=== PATIENT | female | born 1940 | race Caucasian/White ===

== ENCOUNTER 2017-07-27 08:33 | Emergency (ER) | payer OTHER ==
[~2017-07-27] VITALS: Ht 162.6 cm; Wt 74.0 kg
[~2017-07-27 08:33] MED LIST: ANTIVERT25 MG PO; BENADRYL25 MG PO; BENICAR HCT 401 EAC1; BENICAR HCT 401 EAC1 PO; CYANOCOBALAM1000 MCG PO; ESTER-C 1,0001 EACH PO; ESTER-C500 M2 PO; IRON55 MG PO; LUTEIN10 MG PO; LUTEIN6 MG PO; METAMUCIL0.52 GM PO; METAMUCIL197.2 GM PO; MIRALAX17 GM PO; MIRALAX255 GM PO; OMEGA-31000 M1 PO; PROTONIX40 MG PO; TYLENOL REGULA325 MG PO; VITAMIN B12 100MCG PO; VITAMIN D1000 UNIT PO; VITAMIN D2000 INTUN PO; VIVELLE-DOT,0.025 MG; VIVELLE-DOT,0.025 MG TD; [UNRECOGNIZED DRUG - OTHER]; [UNRECOGNIZED DRUG - OTHER] PO
[2017-07-27 12:00] VITALS: BP 136/67
== END 2017-07-27 12:02 | disposition home or self-care (01) ==
LOC: EME 08:33
DX: M79.672 Pain in left foot (principal); E78.5 Hyperlipidemia, unspecified; I10 Essential (primary) hypertension; Z88.5 Allergy status to narcotic agent; Z88.0 Allergy status to penicillin; Z88.1 Allergy status to other antibiotic agents
CPT/HCPCS: 73630; 99281; 99284